=== PATIENT | female | born 1925 | race Caucasian/White ===

== ENCOUNTER 2017-08-06 18:18 | Inpatient (IN) | payer OTHER, MEDICARE ==
[2017-08-06] VITALS (8 sets, daily range): BP systolic 135–175; BP diastolic 64–89; PULSE 85–101; RESP 18–21; TEMP 98.2; O2SAT 96–98
[~2017-08-06] VITALS: Ht 154.9 cm; Wt 58.3 kg
[2017-08-06] MEDS ORDERED: ZOCO20TA PO (18:31)
[2017-08-06] MEDS ORDERED: TRAD5TAB PO (18:31)
[2017-08-06] MEDS ORDERED: HYDR-3799 PO (18:31)
[2017-08-06] MEDS ORDERED: GLIP10TA6 PO (18:31)
[2017-08-06] MEDS ORDERED: CHOL10008 PO (18:31)
[2017-08-06] MEDS ORDERED: LISI-515 PO (18:31)
[2017-08-06] MEDS ORDERED: CARV25TA PO (18:31)
[2017-08-06] MEDS ORDERED: DEXA4TAB PO (18:31)
[2017-08-06] MEDS ORDERED: CALC250T PO (18:31)
[2017-08-06] MEDS ORDERED: FURO1TAB60 PO (18:31)
[2017-08-06] MEDS ORDERED: SODIUM CHLOR 0.9% 1000 ML INJ 1,000 ML IV ONE (18:32)
--- NOTE | 2017-08-06 18:32 | PD ---
HPI Chief Complaint: Diabetic Time Seen by Provider: 18:27 Travel History International Travel<30 days: No Contact w/Intl Traveler<30days: No Traveled to known affect area: No History of Present Illness HPI DIAGNOSED WITH ITP [address] BARAHONA AND PLACED ON DEXAMETHASONE....TODAY HER GLUCOMETER READS HI SO SHE PRESENTS FOR CARE. PATIENT DENIES TIDWELL/CP/ABDPAIN/ BACKPAIN/N/V/D.... PFSH Past Medical History Diabetes: Yes ?: Not Social History Tobacco Use: No Allergies-Medications (Allergen,Severity, Reaction): Coded Allergies: Penicillins (Verified Allergy, Intermediate, SKIN IRRITATION, 08/06/17) Reported Meds & Prescriptions Reported Meds & Active Scripts Active Reported Tradjenta (Linagliptin) 5 Mg Tab 5 Mg PO DAILY Vitamin D3 (Cholecalciferol) 1,000 Unit Cap 1,000 Units PO DAILY Zocor (Simvastatin) 20 Mg Tab 20 Mg PO DAILY Lisinopril 20 Mg Tab 20 Mg PO DAILY Lasix (Furosemide) 40 Mg Tab 40 Mg PO DAILY Glipizide 10 Mg Tab 10 Mg PO BIDAC Take 30 minutes before a meal Hydralazine HCl 25 Mg Tablet 12.5 Mg PO BID Calcium Citrate 250 Mg Calcium Tab 250 Mg PO Carvedilol 25 Mg Tab 25 Mg PO BID Dexamethasone 4 Mg Tab 40 Mg PO DIRECTED Review of Systems Except as stated in HPI: all other systems reviewed are Neg General / Constitutional: No: Fever Eyes: No: Visual changes HENT: No: Headaches Cardiovascular: No: Chest Pain or Discomfort Respiratory: No: Shortness of Breath Gastrointestinal: No: Abdominal Pain Genitourinary: No: Dysuria Musculoskeletal: No: Pain Skin: No Rash Neurologic: No: Weakness Psychiatric: No: Depression Endocrine: Positive: Polyuria, Polydipsia Hematologic/Lymphatic: No: Easy Bruising Physical Exam Narrative GENERAL: SKIN: Warm and dry. HEAD: Atraumatic. Normocephalic. EYES: Pupils equal and round. No scleral icterus. No injection or drainage. ENT: No nasal bleeding or discharge. Mucous membranes pink and moist. NECK: Trachea midline. No JVD. CARDIOVASCULAR: Regular rate and rhythm. RESPIRATORY: No accessory muscle use. Clear to auscultation. Breath sounds equal bilaterally. GASTROINTESTINAL: Abdomen soft, non-tender, nondistended. MUSCULOSKELETAL: Extremities without clubbing, cyanosis, or edema. No obvious deformities. NEUROLOGICAL: Awake and alert. No obvious cranial nerve deficits. Motor grossly within normal limits. Five out of 5 muscle strength in the arms and legs. Normal speech. PSYCHIATRIC: Appropriate mood and affect; insight and judgment normal. Data Data Last Documented VS Vital Signs Date Time Temp Pulse Resp B/P (MAP) Pulse Ox O2 Delivery O2 Flow Rate FiO2 08/06/17 18:37 85 18 162/81 (108) 97 08/06/17 18:19 98.2 Orders Orders Electrocardiogram (08/06/17 18:32) Complete Blood Count With Diff (08/06/17 18:32) Comprehensive Metabolic Panel (08/06/17 18:32) Urinalysis - C+S If Indicated (08/06/17 18:32) Chest, Single Ap (08/06/17 18:32) Ecg Monitoring (08/06/17 18:32) Iv Access Insert/Monitor (08/06/17 18:32) Oximetry (08/06/17 18:32) NPO (08/06/17 18:32) Sodium Chloride 0.9% Flush (Ns Flush) (08/06/17 18:45) Sodium Chlor 0.9% 1000 Ml Inj (Ns 1000 M (08/06/17 18:32) Troponin I (08/06/17 18:32) Lipase (08/06/17 18:32) Insulin Human Regular Inj (Novolin R Inj (08/06/17 18:45) Insulin Human Regular Inj (Novolin R Inj (08/06/17 18:45) Blood Gas Venous Ph (08/06/17 19:27) Labs Laboratory Tests Test 08/06/17 18:45 White Blood Count 6.1 TH/MM3 Red Blood Count 3.86 MIL/MM3 Hemoglobin 11.3 GM/DL Hematocrit 35.6 % Mean Corpuscular Volume 92.3 FL Mean Corpuscular Hemoglobin 29.2 PG Mean Corpuscular Hemoglobin Concent 31.6 % Red Cell Distribution Width 12.7 % Platelet Count 25 TH/MM3 Mean Platelet Volume 9.3 FL Neutrophils (%) (Auto) 87.6 % Lymphocytes (%) (Auto) 11.5 % Monocytes (%) (Auto) 0.6 % Eosinophils (%) (Auto) 0.2 % Basophils (%) (Auto) 0.1 % Neutrophils # (Auto) 5.4 TH/MM3 Lymphocytes # (Auto) 0.7 TH/MM3 Monocytes # (Auto) 0.0 TH/MM3 Eosinophils # (Auto) 0.0 TH/MM3 Basophils # (Auto) 0.0 TH/MM3 CBC Comment AUTO DIFF Blood Urea Nitrogen 38 MG/DL Creatinine 2.40 MG/DL Random Glucose 758 MG/DL Total Protein 7.2 GM/DL Albumin 3.1 GM/DL Calcium Level 8.5 MG/DL Alkaline Phosphatase 112 U/L Aspartate Amino Transf (AST/SGOT) 14 U/L Alanine Aminotransferase (ALT/SGPT) 19 U/L Total Bilirubin 0.3 MG/DL Sodium Level 131 MEQ/L Potassium Level 4.4 MEQ/L Chloride Level 95 MEQ/L Carbon Dioxide Level 19.2 MEQ/L Anion Gap 17 MEQ/L Estimat Glomerular Filtration Rate 19 ML/MIN Troponin I LESS THAN 0.02 NG/ML Lipase 220 U/L MDM Medical Decision Making Medical Screen Exam Complete: Yes Emergency Medical Condition: Yes Medical Record Reviewed: Yes Interpretation(s) PACED RHYTHM AT 97. Differential Diagnosis HYPERGLYCEMIA DUE TO STEROID USE V PNA V PA Narrative Course PATIENT'S HYPERGLYCEMIA DUE TO STEROID USE FOR ITP DIAGNOSIS, THIS IS AN APPROPRIATE REACTION AND NO EVIDENCE OF STEMI/ HOWEVER DECREASED BICARB, ELEV CREATININE AND DECREASED GFR ALONG WITH GLUC 758 C/W EARLY DKA Critical Care Narrative CRITICAL CARE NOTE: With evaluation of the patient, labs, EKG, receipt of radiologic studies, administration of medications, reevaluation the patient and discussion of the patient with the admitting physicians, the total critical care time was [45] minutes. Time to perform other separately billable procedures was not included in the critical care time. Diagnosis Primary Impression: DIABETIC HYPERGLYCEMIA DUE TO STEROID USE Additional Impressions: EARLY DKA Renal insufficiency Admitting Information Admitting Physician Requests: Observation Volodymyr Yu MD Aug 06, 2017 18:32
[2017-08-06] MEDS ORDERED: INSULIN HUMAN REGULAR 1,000 UNITS/10 ML VIAL SQ ONE (18:45)
[2017-08-06] MEDS ORDERED: INSULIN HUMAN REGULAR 1,000 UNITS/10 ML VIAL IV PUSH ONE (18:45)
[2017-08-06] MEDS ORDERED: SODIUM CHLORIDE 0.9% FLUSH 10 ML FLUSH IVF PRN (18:45)
--- NOTE | 2017-08-06 18:55 | RADRPT ---
EXAM DATE/TIME: 08/06/2017 18:37 [facility] COMPARISON: No previous studies available for comparison. INDICATIONS : Hyperglycemia- No chest complaints. MEDICAL HISTORY : Hypercholesterolemia. Hypertension Congestive heart failure. Diabetes, SURGICAL HISTORY : Pacemaker. Cholecystectomy. Hysterectomy. Left hip surgery, Spinal surgery ENCOUNTER: Initial ACUITY: 1 day PAIN SCORE: 0/10 LOCATION: Bilateral chest FINDINGS: No infiltrate, effusion or pneumothorax demonstrated. Normal heart size. Cardiac pacer/defibrillator present. There is an old fracture of the proximal left humerus. CONCLUSION: No evidence of acute cardiopulmonary disease. Roberto Pandey MD on August 06, 2017 at 18:51 Board Certified Radiologist. This report was verified electronically.
[2017-08-06 19:11] LABS: CHLORIDE 95 MEQ/L (98-107); SODIUM (NA) 131 MEQ/L (136-145)
[2017-08-06 19:12] LABS: AUTOMATED NEUTROPHIL # 5.4 TH/MM3 (1.8-7.7); BASOPHIL % 0.1 % (0.0-2.0); EOSINOPHIL % 0.2 % (0.0-4.0); HEMATOCRIT 35.6 % (35.0-46.0); HEMOGLOBIN 11.3 GM/DL (11.6-15.3); LYMPH % 11.5 % (9.0-44.0); LYMPHOCYTE # 0.7 TH/MM3 (1.0-4.8); MEAN CELL VOLUME 92.3 FL (80.0-100.0); MEAN CORPUSCULAR HEMOGLOBIN 29.2 PG (27.0-34.0); MEAN CORPUSCULAR HGB CONC 31.6 % (32.0-36.0); MEAN PLATELET VOLUME 9.3 FL (7.0-11.0); MONO % 0.6 % (0.0-8.0); NEUT % 87.6 % (16.0-70.0); PLATELET COUNT 25 TH/MM3 (150-450); RED BLOOD COUNT 3.86 MIL/MM3 (4.00-5.30); RED CELL DISTRIBUTION WIDTH 12.7 % (11.6-17.2); WHITE BLOOD COUNT 6.1 TH/MM3 (4.0-11.0)
[2017-08-06 19:15] LABS: CALCIUM 8.5 MG/DL (8.5-10.1)
[2017-08-06 19:16] LABS: ALBUMIN 3.1 GM/DL (3.4-5.0); BICARBONATE 19.2 MEQ/L (21.0-32.0); BLOOD UREA NITROGEN 38 MG/DL (7-18); LIPASE 220 U/L (73-393)
[2017-08-06 19:19] LABS: ALT (GPT) 19 U/L (10-53); AST (GOT) 14 U/L (15-37); GLOMERULAR FILTRATION RATE 19 ML/MIN (>89)
[2017-08-06 19:20] LABS: TOTAL BILIRUBIN ADULT 0.3 MG/DL (0.2-1.0); TOTAL PROTEIN 7.2 GM/DL (6.4-8.2)
[2017-08-06 19:27] LABS: ALKALINE PHOSPHATASE 112 U/L (45-117); GLUCOSE,RANDOM 758 MG/DL (74-106); TROPONIN I LESS THAN 0.02 NG/ML (0.02-0.05)
[2017-08-06] MEDS ORDERED: LACTULOSE SYRUP 20 GM/30 ML CUP PO PRN (20:00)
[2017-08-06] MEDS ORDERED: MAGNESIUM HYDROXIDE SUSP 30 ML CUP PO PRN (20:00)
[2017-08-06] MEDS ORDERED: DEXTROSE 50% IN WATER 50 ML VIAL(D50) IV PUSH PRN (20:00)
[2017-08-06] MEDS ORDERED: ACETAMINOPHEN/HYDROcodone 325 MG/10 MG TAB PO PRN (20:00)
[2017-08-06] MEDS ORDERED: SODIUM CHLORIDE 0.9% FLUSH 10 ML FLUSH IV FLUSH PRN (20:00)
[2017-08-06] MEDS ORDERED: GLUCAGON 1 MG/ML VIAL OTHER PRN (20:00)
[2017-08-06] MEDS ORDERED: ACETAMINOPHEN/HYDROcodone 325 MG/5 MG TAB PO PRN (20:00)
[2017-08-06] MEDS ORDERED: ACETAMINOPHEN 325 MG TAB PO PRN (20:00)
[2017-08-06] MEDS ORDERED: BISACODYL 10 MG SUPP RECTAL PRN (20:00)
[2017-08-06] MEDS ORDERED: SENNOSIDES 8.6 MG TAB PO PRN (20:00)
[2017-08-06] MEDS ORDERED: ONDANSETRON HCL 4 MG/2 ML VIAL IVP PRN (20:00)
[2017-08-06 20:03] LABS: BILIRUBIN, URINE NEG (NEG); BLOOD, URINE NEG (NEG); GLUCOSE,URINE 1000 OR GREATER mg/dL (NEG); KETONE, URINE NEG (NEG); NITRITE,URINE NEG (NEG); PH, URINE 5.5 (5.0-8.5); URINE LEUKOCYTE ESTERASE NEG (NEG)
[2017-08-06 20:14] LABS: URINE COLOR STRAW (YELLW/STRAW)
[2017-08-06 20:15] LABS: BACTERIA, URINE MOD /hpf; SQUAMOUS EPITHELIAL CELL URINE 0-5 /hpf (0-5)
[2017-08-06] MEDS: SODIUM CHLOR 0.9% 1000 ML INJ 1,000 ML IV SCH (20:19)
[2017-08-06] MEDS: SODIUM CHLORIDE 0.9% FLUSH 10 ML FLUSH IV FLUSH SCH (21:00)
[2017-08-06] MEDS ORDERED: INSULIN ASPART SUPPLEMENTAL SCALE SQ SCH (21:00)
[2017-08-06] MEDS: hydrALAZINE HCL 25 MG TAB PO SCH (21:36)
[2017-08-06] MEDS: CARVEDILOL 12.5 MG TAB PO SCH (21:36)
[2017-08-06] MEDS: DOCUSATE SODIUM 50 MG/SENNA 8.6 MG TAB PO SCH (21:36)
[2017-08-06] MEDS ORDERED: PILL SPLITTER OTHER PRN (23:45)
[2017-08-07] VITALS (17 sets, daily range): BP systolic 126–196; BP diastolic 57–89; PULSE 77–89; RESP 14–32; TEMP 97.3–98.6; O2SAT 83–96
[2017-08-07 07:09] LABS: AUTOMATED NEUTROPHIL # 8.7 TH/MM3 (1.8-7.7); BASOPHIL % 0.2 % (0.0-2.0); EOSINOPHIL # 0.1 TH/MM3 (0-0.4); EOSINOPHIL % 0.6 % (0.0-4.0); HEMATOCRIT 33.3 % (35.0-46.0); HEMOGLOBIN 10.9 GM/DL (11.6-15.3); MEAN CELL VOLUME 92.1 FL (80.0-100.0); MEAN CORPUSCULAR HGB CONC 32.6 % (32.0-36.0); MEAN PLATELET VOLUME 9.1 FL (7.0-11.0); MONOCYTE # 0.1 TH/MM3 (0-0.9); NEUT % 88.2 % (16.0-70.0); PLATELET COUNT 35 TH/MM3 (150-450); RED BLOOD COUNT 3.61 MIL/MM3 (4.00-5.30); RED CELL DISTRIBUTION WIDTH 13.2 % (11.6-17.2); WHITE BLOOD COUNT 9.9 TH/MM3 (4.0-11.0)
[2017-08-07 07:55] LABS: ALKALINE PHOSPHATASE 98 U/L (45-117); ALT (GPT) 18 U/L (10-53); AST (GOT) 17 U/L (15-37); BICARBONATE 23.9 MEQ/L (21.0-32.0); BLOOD UREA NITROGEN 32 MG/DL (7-18); CALCIUM 8.3 MG/DL (8.5-10.1); CHLORIDE 104 MEQ/L (98-107); GLOMERULAR FILTRATION RATE 33 ML/MIN (>89); GLUCOSE,RANDOM 364 MG/DL (74-106); SODIUM (NA) 139 MEQ/L (136-145); TOTAL BILIRUBIN ADULT 0.3 MG/DL (0.2-1.0); TOTAL PROTEIN 6.7 GM/DL (6.4-8.2)
--- NOTE | 2017-08-07 07:56 | HHI.FF ---
Face to Face Verification Diagnosis: (1) DM2 (diabetes mellitus, type 2) Home Health Nursing Order: Medical education Diabetic education Medication education-adverse effect I have seen patient Ashley Sexton on 08/07/17. My clinical findings support the need for the requested home health care services because: Deconditioned w/ increased weakness I certify that my clinical findings support that this patient is homebound because: Poor cardiac reserve Desiree Washington MD Aug 07, 2017 07:56
--- NOTE | 2017-08-07 07:56 | HHI.HP ---
HPI Service [facility] Primary Care Physician Marlena Wyatt MD Admission Diagnosis EARLY DKA,HYPERGLYCEMIA Diagnoses: Chief Complaint: Elevated blood sugar Travel History International Travel<30 Days: No Contact w/Intl Traveler <30 Da: No Traveled to Known Affected Are: No History of Present Illness This patient is a very pleasant 89-year-old female with a long history of diabetes. She also was recently diagnosed with ITP and started on oral steroids. She had taken this for one day and noted her glucometer read "high". She came to the emergency room where her sugar on the random glucose was 758. Patient also had signs of acidosis and was thought to be early DKA. She was given IV insulin as well as subcutaneous insulin her sugars and electrolytes improved. The patient has no fevers or chest pain. She was recommended for observation due to the elevated blood sugars Review of Systems Except as stated in HPI: all other systems reviewed are Neg Past Family Social History Past Medical History ITP Hypertension Diabetes mellitus Hyperlipidemia Congestive heart failure Past Surgical History Hip replacement Pacemaker Hysterectomy Cholecystectomy Reported Medications reviewed in the EMR, recently started dexamethasone Allergies: Coded Allergies: Penicillins (Verified Allergy, Intermediate, SKIN IRRITATION, 08/06/17) Active Ordered Medications Reviewed in the EMR Family History Mother at 21 and she was raised by her grandmother and she did renew her father's history Social History , has 6 children Lives with her family No tobacco or alcohol dependency Physical Exam Vital Signs Vital Signs Date Time Temp Pulse Resp B/P (MAP) Pulse Ox O2 Delivery O2 Flow Rate FiO2 08/07/17 06:00 80 08/07/17 05:00 86 08/07/17 04:00 83 08/07/17 04:00 98.1 83 14 171/75 (107) 83 08/07/17 03:53 80 08/07/17 03:00 83 08/07/17 02:00 85 08/07/17 01:00 85 08/07/17 00:00 98.2 89 32 144/77 (99) 96 08/07/17 00:00 98.2 89 32 144/77 (99) 96 08/07/17 00:00 89 08/06/17 23:00 85 08/06/17 22:00 88 21 175/80 (111) 08/06/17 22:00 87 08/06/17 21:07 95 18 135/69 (91) 96 08/06/17 21:04 95 18 135/89 (104) 96 Room Air 08/06/17 20:00 95 18 135/69 (91) 98 Room Air 08/06/17 19:00 96 18 167/75 (105) 98 Room Air 08/06/17 19:00 18 98 Room Air 08/06/17 18:37 85 18 162/81 (108) 97 08/06/17 18:19 98.2 101 18 144/64 (90) 96 Physical Exam GENERAL: This is a well-nourished, well-developed patient, in no apparent distress. SKIN: No rashes, ecchymoses or lesions. Cool and dry. HEAD: Atraumatic. Normocephalic. No temporal or scalp tenderness. EYES: Pupils equal round and reactive. Extraocular motions intact. No scleral icterus. No injection or drainage. ENT: Nose without bleeding, purulent drainage or septal hematoma. Throat without erythema, tonsillar hypertrophy or exudate. Uvula midline. Airway patent. NECK: Trachea midline. No JVD or lymphadenopathy. Supple, nontender, no meningeal signs. CARDIOVASCULAR: Regular rate and rhythm without murmurs, gallops, or rubs. RESPIRATORY: Clear to auscultation. Breath sounds equal bilaterally. No wheezes , rales, or rhonchi. GASTROINTESTINAL: Abdomen soft, non-tender, nondistended. No hepato-splenomegaly , or palpable masses. No guarding. MUSCULOSKELETAL: Extremities without clubbing, cyanosis, or edema. No joint tenderness, effusion, or edema noted. No calf tenderness. Negative Homans sign bilaterally. NEUROLOGICAL: Awake and alert. Cranial nerves II through XII intact. Motor and sensory grossly within normal limits. Five out of 5 muscle strength in all muscle groups. Normal speech. Laboratory Laboratory Tests Test 08/06/17 18:45 08/06/17 19:50 08/07/17 06:10 White Blood Count 6.1 9.9 Red Blood Count 3.86 3.61 Hemoglobin 11.3 10.9 Hematocrit 35.6 33.3 Mean Corpuscular Volume 92.3 92.1 Mean Corpuscular Hemoglobin 29.2 30.0 Mean Corpuscular Hemoglobin Concent 31.6 32.6 Red Cell Distribution Width 12.7 13.2 Platelet Count 25 35 Mean Platelet Volume 9.3 9.1 Neutrophils (%) (Auto) 87.6 88.2 Lymphocytes (%) (Auto) 11.5 10.0 Monocytes (%) (Auto) 0.6 1.0 Eosinophils (%) (Auto) 0.2 0.6 Basophils (%) (Auto) 0.1 0.2 Neutrophils # (Auto) 5.4 8.7 Lymphocytes # (Auto) 0.7 1.0 Monocytes # (Auto) 0.0 0.1 Eosinophils # (Auto) 0.0 0.1 Basophils # (Auto) 0.0 0.0 CBC Comment AUTO DIFF AUTO DIFF Differential Comment AUTO DIFF CONFIRMED Platelet Estimate LOW Platelet Morphology Comment NORMAL Red Cell Morphology Comment NORMAL Blood Urea Nitrogen 38 Creatinine 2.40 Random Glucose 758 Total Protein 7.2 Albumin 3.1 Calcium Level 8.5 Alkaline Phosphatase 112 Aspartate Amino Transf (AST/SGOT) 14 Alanine Aminotransferase (ALT/SGPT) 19 Total Bilirubin 0.3 Sodium Level 131 Potassium Level 4.4 Chloride Level 95 Carbon Dioxide Level 19.2 Anion Gap 17 Estimat Glomerular Filtration Rate 19 Troponin I LESS THAN 0.02 Lipase 220 Urine Color STRAW Urine Turbidity CLEAR Urine pH 5.5 Urine Specific Douglas 1.025 Urine Protein NEG Urine Glucose (UA) 1000 OR GREATER Urine Ketones NEG Urine Occult Blood NEG Urine Nitrite NEG Urine Bilirubin NEG Urine Leukocyte Esterase NEG Urine WBC 3-5 Urine Squamous Epithelial Cells 0-5 Urine Bacteria MOD Microscopic Urinalysis Comment CULTURE INDICATED Date/Time Source Procedure Growth Status 08/06/17 19:50 Urine Clean Catch Urine Culture Pending Received Result Diagram: 08/07/17 0610 08/06/17 184 Imaging Last Impressions Chest X-Ray 08/06/17 1832 Signed Impressions: Service Date/Time: Sunday, August 06, 2017 18:37 - CONCLUSION: No evidence of acute cardiopulmonary disease. MD Hallie Becerra VTE Risk Assessment Hallie VTE Risk Assessment: Mod/High Risk (score >= 2) VTE Pharm Contraindication: thrombocytopenia Caprini Risk Assessment Model Point Value = 1 Point Value = 2 Point Value = 3 Point Value = 5 Age 41-60 Minor surgery BMI > 25 kg/m2 Swollen legs Varicose veins or History of unexplained or recurrent spontaneous Oral contraceptives or hormone replacement Sepsis (< 1 month) Serious lung disease, including pneumonia (< 1 month) Abnormal pulmonary function Acute myocardial infarction Congestive heart failure (< 1 month) History of inflammatory bowel disease Medical patient at bed rest Age 61-74 Arthroscopic surgery Major open surgery (> 45 min) Laparoscopic surgery (> 45 min) Malignancy Confined to bed (> 72 hours) Immobilizing plaster cast Central venous access Age >= 75 History of VTE Family history of VTE Factor V Leiden Prothrombin [id number] Lupus anticoagulant Anticardiolipin antibodies Elevated serum homocysteine Heparin-induced thrombocytopenia Other congenital or acquired thrombophilia Stroke (< 1 month) Elective arthroplasty Hip, pelvis, or leg fracture Acute spinal cord injury (< 1 month) Prophylaxis Regimen Total Risk Factor Score Risk Level Prophylaxis Regimen 0-1 Low Early ambulation 2 Moderate Order ONE of the following: *Sequential Compression Device (SCD) *Heparin 5000 units SQ BID 3-4 Higher Order ONE of the following medications: *Heparin 5000 units SQ TID *Enoxaparin/Lovenox 40 mg SQ daily (WT < 150 kg, CrCl > 30 mL/min) *Enoxaparin/Lovenox 30 mg SQ daily (WT < 150 kg, CrCl > 10-29 mL/min) *Enoxaparin/Lovenox 30 mg SQ BID (WT < 150 kg, CrCl > 30 mL/min) AND/OR *Sequential Compression Device (SCD) 5 or more Highest Order ONE of the following medications: *Heparin 5000 units SQ TID (Preferred with Epidurals) *Enoxaparin/Lovenox 40 mg SQ daily (WT < 150 kg, CrCl > 30 mL/min) *Enoxaparin/Lovenox 30 mg SQ daily (WT < 150 kg, CrCl > 10-29 mL/min) *Enoxaparin/Lovenox 30 mg SQ BID (WT < 150 kg, CrCl > 30 mL/min) AND *Sequential Compression Device (SCD) Assessment and Plan Problem List: (1) DKA (diabetic ketoacidoses) ICD Code: E13.10 - Other specified diabetes mellitus with ketoacidosis without coma Plan: Resolving with insulin Patient will need to add a sliding scale to supplement her current regimen well on the steroids. 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 Plan: Recently started on dexamethasone which we will continue Patient follow-up this week with her manager billing No evidence of bleeding with thrombocytopenia (3) HTN (hypertension) ICD Code: I10 - Essential (primary) hypertension Plan: Currently controlled on Coreg, hydralazine, lisinopril (4) CHF (congestive heart failure) ICD Code: I50.9 - Heart failure, unspecified Plan: Continue Lasix No current evidence of acute exacerbation of chronic systolic heart failure Assessment and Plan Discharge home Activity unrestricted Diet diabetic Code Status Full code Discussed Condition With Patient LAUNDRY ROUTE DRIVER Felix,Desiree Adame MD Aug 07, 2017 07:55
[2017-08-07] MEDS ORDERED: NOVOLOGP2 SQ (07:57)
[2017-08-07] MEDS: INSULIN ASPART SUPPLEMENTAL SCALE SQ SCH ×4 (08:00→21:47)
[2017-08-07] MEDS: DEXAMETHASONE 4 MG TAB PO SCH (09:00)
[2017-08-07] MEDS: PRAVASTATIN SOD 40 MG TAB PO SCH (09:00)
[2017-08-07] MEDS: hydrALAZINE HCL 25 MG TAB PO SCH ×2 (09:00→21:08)
[2017-08-07] MEDS: DOCUSATE SODIUM 50 MG/SENNA 8.6 MG TAB PO SCH ×2 (09:00→21:00)
[2017-08-07] MEDS: FUROSEMIDE 40 MG TAB PO SCH (10:21)
[2017-08-07] MEDS: CARVEDILOL 12.5 MG TAB PO SCH ×2 (10:22→21:07)
[2017-08-07] MEDS: SODIUM CHLORIDE 0.9% FLUSH 10 ML FLUSH IV FLUSH SCH ×2 (10:28→21:00)
[2017-08-07] MEDS ORDERED: INSULIN DETEMIR 100 UNITS/ML VIAL SQ ONE (14:14)
[2017-08-07] MEDS: SODIUM CHLOR 0.9% 1000 ML INJ 1,000 ML IV SCH (16:39)
[2017-08-08 08:00] VITALS: BP 130/73; PULSE 72; RESP 18; TEMP 96.3; O2SAT 98
[2017-08-08] MEDS: INSULIN ASPART SUPPLEMENTAL SCALE SQ SCH ×2 (08:00→12:00)
--- NOTE | 2017-08-08 08:32 | EKG ---
Date Performed: 08/06/2017 Time Performed: 18:51:29 PTAGE: 89 years EKG: Sinus rhythm with P wave synchronis ventricular pacing NO PREVIOUS TRACING DOCTOR: Lj Tong Interpretating Date/Time 08/08/2017 08:31:30
[2017-08-08] MEDS: SODIUM CHLORIDE 0.9% FLUSH 10 ML FLUSH IV FLUSH SCH (09:00)
[2017-08-08] MEDS: CARVEDILOL 12.5 MG TAB PO SCH (10:07)
[2017-08-08] MEDS: PRAVASTATIN SOD 40 MG TAB PO SCH (10:07)
[2017-08-08] MEDS: FUROSEMIDE 40 MG TAB PO SCH (10:07)
[2017-08-08] MEDS: hydrALAZINE HCL 25 MG TAB PO SCH (10:07)
[2017-08-08] MEDS: DOCUSATE SODIUM 50 MG/SENNA 8.6 MG TAB PO SCH (10:07)
[2017-08-08] MEDS: DEXAMETHASONE 4 MG TAB PO SCH (10:08)
[2017-08-08] MEDS: SODIUM CHLOR 0.9% 1000 ML INJ 1,000 ML IV SCH (10:12)
[2017-08-08] MEDS ORDERED: LANCETS1 MI1 (10:21)
[2017-08-08] MEDS ORDERED: GLUCTES12 ×2 (10:21→11:24)
[2017-08-08] MEDS ORDERED: LEVEMIR SQ (10:21)
[2017-08-08] MEDS ORDERED: INSU1MIS15 (11:24)
[2017-08-08] MEDS ORDERED: BIOM30MI (11:24)
--- NOTE | 2017-08-08 11:54 | HHI.DS ---
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 She also was recently diagnosed with ITP and started on oral steroids. She had taken this for one day and noted her glucometer read "high". She came to the emergency room where her sugar on the random glucose was 758. Patient also had signs of acidosis and was thought to be early DKA. She was given IV insulin as well as subcutaneous insulin her sugars and electrolytes improved. The patient has no fevers or chest pain. She was recommended for observation due to the elevated blood sugars CBC/BMP: 08/07/17 0610 08/07/17 0610 Significant Findings Laboratory Tests Test 08/06/17 18:45 08/06/17 19:50 08/07/17 06:10 Red Blood Count 3.86 MIL/MM3 (4.00-5.30) 3.61 MIL/MM3 (4.00-5.30) Hemoglobin 11.3 GM/DL (11.6-15.3) 10.9 GM/DL (11.6-15.3) Mean Corpuscular Hemoglobin Concent 31.6 % (32.0-36.0) Platelet Count 25 TH/MM3 (150-450) 35 TH/MM3 (150-450) Neutrophils (%) (Auto) 87.6 % (16.0-70.0) 88.2 % (16.0-70.0) Lymphocytes # (Auto) 0.7 TH/MM3 (1.0-4.8) Platelet Estimate LOW (NORMAL) LOW (NORMAL) Blood Urea Nitrogen 38 MG/DL (7-18) 32 MG/DL (7-18) Creatinine 2.40 MG/DL (0.50-1.00) 1.50 MG/DL (0.50-1.00) Random Glucose 758 MG/DL (74-106) 364 MG/DL (74-106) Albumin 3.1 GM/DL (3.4-5.0) 3.0 GM/DL (3.4-5.0) Aspartate Amino Transf (AST/SGOT) 14 U/L (15-37) Sodium Level 131 MEQ/L (136-145) Chloride Level 95 MEQ/L (98-107) Carbon Dioxide Level 19.2 MEQ/L (21.0-32.0) Anion Gap 17 MEQ/L (5-15) Estimat Glomerular Filtration Rate 19 ML/MIN (>89) 33 ML/MIN (>89) Troponin I LESS THAN 0.02 NG/ML Urine Glucose (UA) 1000 OR GREATER mg/dL Urine Bacteria MOD /hpf (NONE) Hematocrit 33.3 % (35.0-46.0) Neutrophils # (Auto) 8.7 TH/MM3 (1.8-7.7) Calcium Level 8.3 MG/DL (8.5-10.1) Imaging Last Impressions Chest X-Ray 08/06/17 1832 Signed Impressions: Service Date/Time: Sunday, August 06, 2017 18:37 - CONCLUSION: No evidence of acute cardiopulmonary disease. Roberto Pandey MD PE at Discharge GENERAL: This is a well-nourished, well-developed patient, in no apparent distress. CARDIOVASCULAR: Regular rate and rhythm without murmurs, gallops, or rubs. RESPIRATORY: Clear to auscultation. Breath sounds equal bilaterally. No wheezes , rales, or rhonchi. GASTROINTESTINAL: Abdomen soft, non-tender, nondistended. Normal active bowel sounds MUSCULOSKELETAL: Extremities without clubbing, cyanosis, or edema. NEURO: Alert & Oriented x4 to person, place, time, situation. Moves all ext x4 Pt update on day of discharge Patient doing better today. His transplants and nursing on diabetic teaching has occurred. Patient sugar has improved. Hospital Course Patient is a 89-year-old female who had elevated blood sugars and hyperosmolar syndrome due to uncontrolled diabetes (borderline acidotic) (after starting steroids for ITP. Patient's sugars were over 700. He did come down with intravenous insulin as well as subcutaneous insulin regimen. The patient did well and was discharged home Pt Condition on Discharge: Good Discharge Disposition: Disch w/ Home Health Serv Discharge Time: <= 30 minutes Discharge Instructions DIET: Follow Instructions for: Diabetic Diet Activities you can perform: Regular-No Restrictions Follow up Referrals: Oncology/Hematology - 2-3 Days with Modesto Cordero MD PCP Follow-up - 1 Week New Medications: Glucocom Test Strips (Glucocom Test Strips) 1 Laquita Laquita EA .ROUTE DIRECTED for Blood Sugar Management, #1 Glucocom Test Strips (Glucocom Test Strips) 1 Laquita Laquita EA .ROUTE DIRECTED for Blood Sugar Management, #1 Insulin Aspart Inj (Novolog Inj) 1,000 Unit/10 Ml Vial 2-12 UNITS SQ ACHS for Blood Sugar Management, #10 ML 0 Refills Max dose at bedtime ( ) units; sugars less than 70,(0) units; sugars 150-199,(2) units; sugars 200-249,(4) units; sugars 250-299,(7) units; sugars 300-349,(10) units; sugars greater than 349,(12)units Insulin Detemir Inj (Levemir Inj) 1,000 unit/ 10 ML Vial 10 UNITS SQ HS for Blood Sugar Management, #10 VIAL 0 Refills use while BG greater than 300 Insulin Syringe/U-100/31G X 5/16" 1 ml (Insulin Syringe/U-100/31G X 5/16" 1 ml) 31 Gauge X 5/16" Mis EA .ROUTE DIRECTED for Blood Sugar Management, #1 0 Refills Lancets (Lancets) 1 Mis Mis EA .ROUTE DIRECTED for Blood Sugar Management, #1 0 Refills Parenteral Therapy Supplies (Sharpsafety Sharps Contai) 1 Mis Mis EA .ROUTE DIRECTED, #1 0 Refills Continued Medications: Calcium Citrate (Calcium Citrate) 250 Mg Calcium Tab 250 MG PO for Calcium Supplement, TAB 0 Refills Carvedilol (Carvedilol) 25 Mg Tab 25 MG PO BID, #60 TAB 0 Refills Cholecalciferol (Vitamin D3) 1,000 Unit Cap 1000 UNITS PO DAILY for Nutritional Supplement, #1 BOTTLE 0 Refills Dexamethasone (Dexamethasone) 4 Mg Tab 40 MG PO DIRECTED, TAB 0 Refills Furosemide (Lasix) 40 Mg Tab 40 MG PO DAILY, #30 TAB 0 Refills Glipizide (Glipizide) 10 Mg Tab 10 MG PO BIDAC for Blood Sugar Management, #60 TAB 0 Refills Take 30 minutes before a meal Hydralazine HCl (Hydralazine HCl) 25 Mg Tablet 12.5 MG PO BID for Blood Pressure Management, #60 TAB 0 Refills Linagliptin (Tradjenta) 5 Mg Tab 5 MG PO DAILY for Blood Sugar Management, #30 TAB 0 Refills Lisinopril (Lisinopril) 20 Mg Tab 20 MG PO DAILY, #30 TAB 0 Refills Simvastatin (Zocor) 20 Mg Tab 20 MG PO DAILY for Cholesterol Management, #30 TAB 0 Refills Desiree Washington MD Aug 08, 2017 11:54
== END 2017-08-08 13:40 | disposition home health service (06) | DRG 638 ==
LOC: PHED 18:18 → PHEDA 19:55 → INTOOBSV 19:55 → OBSVTOIN 19:55 → PHICU 21:13 → PH3A 08-07 15:29
PROVIDERS: ADMIT Hospitalist; ATTEND Hospitalist
DX: E11.10 Type 2 diabetes mellitus with ketoacidosis without coma (principal); D69.3 Immune thrombocytopenic purpura; N28.9 Disorder of kidney and ureter, unspecified; I11.0 Hypertensive heart disease with heart failure; I50.22 Chronic systolic (congestive) heart failure; Z79.52 Long term (current) use of systemic steroids; E78.5 Hyperlipidemia, unspecified; Z95.0 Presence of cardiac pacemaker; Z96.649 Presence of unspecified artificial hip joint
CPT/HCPCS: 71045; 80053; 81001; 82948; 83690; 84484; 85025; 87077; 87086; 87186; 93005; 96372; 96374; J1815; J7030; J8540